=== PATIENT | female | born 1955 | race Caucasian/White ===

== ENCOUNTER → 2016-12-01 | Outpatient (CLI) | payer BC ==
[~2016-12-01] MED LIST: ASPI325T PO; CHOL1TAB42; CITA10TA4 PO; COQ-100C2; CRAN500C2; FLUT50SP EACH NARE; FURO20TA PO; LEVO100T63 PO; LEVO112T29 PO; NITR1CAP36 PO; OMEP20TA PO; SLOW47.5; STRETAB11; TRAM50TA PO
--- NOTE | 2016-12-02 11:26 | RSPPFT ---
DATE OF PROCEDURE: 12/01/16 COMMENTS: VOLUMES DYNAMIC: FVC mildly reduced; FEV1 severely reduced. STATIC: Unable to perform. FLOWS: FEV1% moderately reduced; FEF 25-75 severely reduced. DIFFUSION: Moderately reduced. FLOW VOLUME LOOP: Pattern of variable intrathoracic airways obstruction. IMPRESSION: Severe obstructive ventilatory defect with reduction in diffusion consistent with emphysema. There is improvement post-bronchodilator.
== END ==
LOC: HRSP 08:08
PROVIDERS: ATTEND Internal Medicine
DX: R06.02 Shortness of breath (principal); R05 Cough
CPT/HCPCS: 94060; 94620; 94729; 95012